=== PATIENT | male | born 1990 | race Caucasian/White ===

== ENCOUNTER 2016-10-24 18:02 | Emergency (ER) ==
[2016-10-24 18:07] VITALS: BP 144/81; TEMP 98; BMI 29.8
--- NOTE | 2016-10-24 18:11 | ED.PDOC ---
General ED Provider: Dr. CHRYSTAL LAM JR Chief Complaint: Shortness of Air Stated Complaint: 1730-opened chlorine bottle for the pool and had mold on it inhaled some of it now has shortness of breath and cough [End]98.0 82 20 88% 144 /81 10/24 was working on septic system Time Seen by Physician: 18:11 Mode of Arrival: Walk-In Information Source: Patient Exam Limitations: No limitations Nursing and Triage Documentation Reviewed and Agree: No Review of Systems - Review Of Systems Constitutional: Reports: Malaise Ears, Nose, Mouth, Throat: Reports: Throat pain Respiratory: Reports: Cough, Short of air Cardiac: Reports: No symptoms GI: Reports: No symptoms : Reports: No symptoms Musculoskeletal: Reports: No symptoms Skin: Reports: No symptoms Neurological: Reports: Anxiety Endocrine: Reports: No symptoms Hematologic/Lymphatic: Reports: No symptoms All Other Systems: Other Past Medical History - Past Medical History Previously Healthy: Yes Endocrine: Reports: None Cardiovascular: Reports: None Respiratory: Reports: None Hematological: Reports: None Gastrointestinal: Reports: None Genitourinary: Reports: None Neuro/Psych: Reports: None Musculoskeletal: Reports: None Cancer: Reports: None - Surgical History General Surgical History: Reports: Orthopedic (tib/fib compound fx) - Family History Family History: Reports: Unknown - Social History Smoking Status: Current every day smoker, Light tobacco smoker Hx Substance Use: No Alcohol Screening: Occasionally Physical Exam - Physical Exam Appearance: Ill-appearing Ill-appearing: Mild Pain Distress: Mild Eyes: SHAYY, EOMI, Conjunctiva clear ENT: Ears normal, Nose normal, Oropharynx normal Neck: Supple Respiratory: Airway patent, Breath sounds diminished, Rhonchi, Wheezes Cardiovascular: RRR, Pulses normal, No rub, No murmur GI/: Soft, Nontender, No masses, Bowel sounds normal, No Organomegaly Musculoskeletal: Normal strength, ROM intact, No edema, No calf tenderness Skin: Warm, Dry, Normal color Neurological: Sensation intact, Motor intact, Reflexes intact, Cranial nerves intact, Alert, Oriented Psychiatric: Affect appropriate, Mood appropriate Re-Evaluation - Re-Evaluation Time of Re-Evaluation: 19:29 (bicarb neb per poison control will call back - note product=HTH chlorine tablets) Status: Improved Critical Care Note - Critical Care Note Total Time (mins): 0 Course - Course Hematology/Chemistry: 10/24/16 18:35 10/24/16 18:35 Orders, Labs, Meds: Lab Review 10/24/16 10/24/16 18:10 18:35 WBC 10.01 RBC 5.15 Hgb 15.5 Hct 43.6 MCV 84.7 MCH 30.1 MCHC 35.6 H RDW Coeff of Nancy 12.5 Plt Count 346 Immature Gran % (Auto) 0.4 Neut % (Auto) 71.0 Lymph % (Auto) 19.8 Terrell % (Auto) 7.0 Eos % (Auto) 1.4 Baso % (Auto) 0.4 Immature Gran # (Auto) 0.0 Neut # 7.1 H Lymph # 2.0 Terrell # 0.7 Eos # 0.1 Baso # 0.0 Puncture Site Rbrach O2 Saturation 83.0 L ABG pH 7.377 ABG pCO2 38.7 ABG pO2 48.0 L* ABG HCO3 22.7 ABG Total CO2 24 ABG Base Excess -2 FiO2 % 21.0 Sodium 137 Potassium 3.6 Chloride 103 Carbon Dioxide 26 Anion Gap 11.6 BUN 10 Creatinine 0.93 Estimated GFR (MDRD) 100.00 BUN/Creatinine Ratio 10.75 Glucose 93 Calcium 9.3 Total Bilirubin 0.42 AST 28 ALT 55 Alkaline Phosphatase 76 Total Protein 7.7 Albumin 4.1 Globulin 3.6 Albumin/Globulin Ratio 1.14 Orders Category Date Time Status ABG DRAW REQUEST Stat CARDIO 10/24/16 18:10 Completed EKG-(ED ONLY) Stat CARDIO 10/24/16 19:11 Completed NEBULIZER TREATMENT Stat CARDIO 10/24/16 19:15 Completed NEBULIZER TREATMENT Stat CARDIO 10/24/16 19:20 Completed NEBULIZER TREATMENT Stat CARDIO 10/24/16 19:53 Completed NEBULIZER TREATMENT Stat CARDIO 10/24/16 19:56 Completed OXYGEN [ED APPLY O2] .ONCE EMERGENCY 10/24/16 18:11 Active Poison Control [ED POISON CONTROL CONTACTED] .ONCE EMERGENCY 10/24/16 18:11 Active ABG Stat LAB 10/24/16 18:10 Completed CBC W/ AUTO DIFF Stat LAB 10/24/16 18:35 Completed CMP [COMPREHENSIVE METABOLIC PANEL] Stat LAB 10/24/16 18:35 Completed Ipratropium/Albuterol Neb [Duoneb] MEDS 10/24/16 19:56 Discontinued 1 vial NEB ONCE STA Sodium Bicarb 7.5% [Sodium Bicarbonate 7.5%] MEDS 10/24/16 19:29 Discontinued 1.8 meq IVP ONCE STA CHEST, 2 VIEWS PA & LAT Stat RADS 10/24/16 18:10 Completed Medications Discontinued Medications Generic Name Dose Route Start Last Admin Trade Name Telly PRN Reason Stop Dose Admin Albuterol/Ipratropium 1 vial 10/24/16 19:56 10/24/16 19:20 Duoneb NEB 10/24/16 19:57 1 vial ONCE STA Administration Sodium Bicarbonate 1.8 meq 10/24/16 19:29 10/24/16 19:20 Sodium Bicarbonate 7.5% IVP 10/24/16 19:30 1.8 meq ONCE STA Administration Vital Signs: Temp Pulse Resp BP Pulse Ox 10/24/16 18:02 98.0 F 82 20 144/81 H 88 L Departure - Departure Time of Disposition: 19:50 Disposition: HOME SELF-CARE Discharge Problem: Toxic inhalation injury Qualifiers: Encounter type: initial encounter Injury intent: accidental or unintentional Qualifier Code: (T59.91XA) Toxic effect of unspecified gases, fumes and vapors, accidental (unintentional), initial encounter Instructions: Pneumonitis (ED) Condition: Good Pt referred to PMD for follow-up: Yes Additional Instructions: recheck 2 days PMD may follow up with [place] [facility] avid smoking recommend nicotine patches may begin medrol dosepack return if shortness of breath or fever over 101.0 Prescriptions: Methylprednisolone [Medrol Dosepak] 4 mg PO DIRECTED #1 pkg Allergies/Adverse Reactions: Allergies procaine [From Novocain] Adverse Reaction (Verified 10/24/16 18:08) Home Medications: Ambulatory Orders Methylprednisolone [Medrol Dosepak] 4 mg PO DIRECTED #1 pkg 10/24/16
[2016-10-24 18:27] LABS: ABG PCO2 38.7 mmHg (35-45); ABG PH 7.377 (7.35-7.45)
[2016-10-24 18:28] LABS: ABG BASE EXCESS -2 (-2.0-2.0); ABG HCO3 22.7 (22.0-26.0); ABG TCO2 24 (22.0-28.0)
[2016-10-24 18:39] LABS: BASOPHILS % (AUTO) 0.4 % (0.0-3.0); EOSINOPHILS # (AUTO) 0.1 K/ul (0.0-0.7); EOSINOPHILS % (AUTO) 1.4 % (0.0-7.0); HEMATOCRIT 43.6 % (42.0-52.0); HEMOGLOBIN 15.5 g/dl (14.0-18.0); IMMATURE GRANULOCYTE % (AUTO) 0.4 % (0.0-5.0); LYMPHOCYTES % (AUTO) 19.8 (10.0-50.0); MEAN CORPUSCULAR HEMOGLOBIN 30.1 pg (27.0-31.0); MEAN CORPUSCULAR HGB CONC 35.6 (31.8-35.4); MEAN CORPUSCULAR VOLUME 84.7 fl (80.0-94.0); MONOCYTES # (AUTO) 0.7 K/uL (0.4-2.0); NEUTROPHILS # (AUTO) 7.1 K/ul (2.0-6.9); PLATELET COUNT 346 10^3/uL (140-440); RED BLOOD COUNT 5.15 10^6/ul (4.70-6.10); WHITE BLOOD COUNT 10.01 K/ul (4.2-10.2)
[2016-10-24 19:01] LABS: ALBUMIN 4.1 g/dL (3.4-5.0); ALBUMIN/GLOBULIN RATIO 1.14; ANION GAP 11.6; BILIRUBIN,TOTAL 0.42 mg/dL (0.00-1.20); BUN/CREATININE RATIO 10.75; CALCIUM 9.3 mg/dL (8.2-10.2); CREATININE 0.93 mg/dL (0.60-1.10); POTASSIUM 3.6 mmol/L (3.5-5.1); TOTAL PROTEIN 7.7 g/dL (6.4-8.2)
[2016-10-24] MEDS ORDERED: SODIUM BICARBONATE 7.5% IVP STA (19:13)
[2016-10-24] MEDS: SODIUM BICARBONATE 7.5% IVP STA ×2 (19:20→19:32)
[2016-10-24] MEDS ORDERED: DUONEB NEB STA (19:56)
--- NOTE | 2016-10-25 01:50 | DI ---
EXAM: PA and lateral views of the chest. HISTORY: Cough. Inhaled clorine. FINDINGS: The bones are unremarkable. The cardiac silhouette and pulmonary vasculature are within n ormal limits. The costophrenic angles are clear. No infiltrate or consolidation. Impression: No acute cardiopulmonary disease.
== END 2016-10-24 19:53 | disposition home or self-care (01) ==
LOC: ED 18:02
DX: T59.91XA Toxic effect of unspecified gases, fumes and vapors, accidental (unintentional), initial encounter (principal); R05 Cough; R06.02 Shortness of breath; F17.210 Nicotine dependence, cigarettes, uncomplicated
CPT/HCPCS: 36415; 80053; 82803; 85025; 93005; 93010; 94640; 99282

== ENCOUNTER 2017-03-22 16:23 | Outpatient (CLI) | END 2017-03-22 16:24 | disposition home or self-care (01) | LOC: LAB 16:23 | PROVIDERS: ATTEND Nurse Practitioner Family | DX: J02.9 Acute pharyngitis, unspecified (principal) | CPT/HCPCS: 87651; 87880 ==